=== PATIENT | male | born 1935 | race Caucasian/White ===

== ENCOUNTER 2017-04-10 08:09 | Outpatient (CLI) | payer MEDICARE, BC | END 2017-04-10 08:10 | disposition home or self-care (01) | DX: I10 Essential (primary) hypertension (principal); E78.5 Hyperlipidemia, unspecified ==

== ENCOUNTER 2017-04-14 09:15 | Outpatient (CLI) | payer MEDICARE, BC | END 2017-04-14 09:16 | disposition home or self-care (01) | LOC: LAB.WCP 09:15 | PROVIDERS: ATTEND Family Medicine | DX: B37.9 Candidiasis, unspecified (principal) | CPT/HCPCS: 87070; 87205 ==

== ENCOUNTER 2017-07-17 17:28 | Outpatient (CLI) | payer MEDICARE, BC ==
[2017-07-17 13:35] LABS: PSA FREE < 0.005 ng/mL (0.16-2.81); PSA TOTAL < 0.008 ng/mL (0.000-2.000)
[2017-07-17 13:41] LABS: ALBUMIN/GLOBULIN RATIO 1.5 (1.0-2.2); BILIRUBIN,TOTAL 0.7 mg/dL (0.2-1.0); BUN - BLOOD UREA NITROGEN 23 mg/dL (6-20); CALCIUM 8.7 mg/dL (8.5-10.3); CARBON DIOXIDE - CO2 29 mmol/L (21-32); CHLORIDE 108 mmol/L (101-111); CHOLESTEROL 102 mg/dL; GFR - MDRD 72 (>89); GLUCOSE 88 mg/dL (70-100); HDL CHOLESTEROL 52 mg/dL; LDL/HDL RATIO 0.7 (<3.6); SODIUM 140 mmol/L (135-145); TOTAL PROTEIN 6.7 g/dL (6.7-8.2); TRIGLYCERIDES 75 mg/dL; VLDL CHOLESTEROL 15 mg/dL
== END 2017-07-17 17:29 | disposition home or self-care (01) ==
LOC: LAB.WCP 17:28
PROVIDERS: ATTEND Family Medicine
DX: E78.5 Hyperlipidemia, unspecified (principal)
CPT/HCPCS: 36415; 80053; 80061; 84154; 84403

== ENCOUNTER 2018-01-28 10:44 | Emergency (ER) | payer MEDICARE, BC ==
[2018-01-28 11:23] LABS: BASOPHILS % (AUTO) 0.6 %; EOSINOPHILS # (AUTO) 0.4 10^3/uL (0.0-0.7); EOSINOPHILS % (AUTO) 6.6 %; HGB - HEMOGLOBIN 15.5 g/dL (14.0-18.0); LYMPHOCYTES % (AUTO) 18.4 %; MEAN CORPUSCULAR HEMOGLOBIN 30.7 pg (27.0-31.0); MEAN CORPUSCULAR VOLUME 90.5 fL (80.0-94.0); MONOCYTES # (AUTO) 0.5 10^3/uL (0.0-1.0); MONOCYTES % (AUTO) 8.7 %; NEUTROPHILS # (AUTO) 3.7 10^3/uL (1.5-6.6); NEUTROPHILS % (AUTO) 65.7 %; PLT - PLATELET COUNT 190 10^3/uL (130-450); RED BLOOD COUNT 5.04 10^6/uL (4.70-6.10); RED CELL DISTRIBUTION WIDTH 13.7 % (12.0-15.0); WHITE BLOOD COUNT 5.6 x10^3/uL (4.8-10.8)
--- NOTE | 2018-01-28 11:25 | ED Physician Documentation ---
History of Present Illness - Stated complaint Stated Complaint: BLOOD IN STOOL - Chief complaint Chief Complaint: Cardiac - History obtained from History obtained from: Patient - History of Present Illness Timing: How many days ago (2) Pain level max: 0 Pain level now: 0 Improved by: nothing Worsened by: nothing - Additonal information Additional information: states black stool in colostomy bag 2 days ago and again today. Had a colostomy placed he states for prostate cancer. States feels lightheaded. Lives alone. Not on blood thinners. No trauma. No abd pain. No vomiting. No fevers. Review of Systems Ten Systems: 10 systems reviewed and negative Constitutional: denies: Fever, Chills Nose: denies: Rhinorrhea / runny nose, Congestion Respiratory: denies: Cough GI: denies: Nausea, Vomiting Skin: denies: Rash Musculoskeletal: denies: Neck pain, Back pain Neurologic: denies: Headache PD PAST MEDICAL HISTORY - Past Medical History Cardiovascular: [place] Respiratory: None Endocrine/Autoimmune: None GI: Other : Other HEENT: Chronic vision loss, Glaucoma Psych: None Musculoskeletal: Osteoarthritis, Other Derm: None - Past Surgical History Past Surgical History: Yes General: Colonoscopy, Other Ortho: Knee replacement Cardiovascular: Coronary stent HEENT: Cataracts - Present Medications Home Medications: Ambulatory Orders Medication Instructions Recorded Confirmed Metoprolol Succinate [Toprol Xl] 12.5 mg PO ONCE 10/18/13 05/24/15 Aspirin 81 mg PO DAILY 02/05/14 05/24/15 - Allergies Allergies/Adverse Reactions: Allergies Allergy/AdvReac Type Severity Reaction Status Date / Time No Known Drug Allergies Allergy Verified 01/28/18 10:52 - Social History Does the pt smoke?: No Smoking Status: Never smoker Does the pt drink ETOH?: No Does the pt have substance abuse?: No - Immunizations Immunizations are current?: Yes - POLST Patient has POLST: No PD ED PE NORMAL - Vitals Vital signs reviewed: Yes - General General: Alert and oriented X 3, No acute distress - HEENT HEENT: Moist mucous membranes - Neck Neck: Supple, no meningeal sign - Cardiac Cardiac: RRR - Respiratory Respiratory: No respiratory distress - Abdomen Abdomen: Soft, Non tender, Non distended, Other (colostomy in LUQ, dark stool in colostomy bag) - Derm Derm: Warm and dry, No rash - Neuro Neuro: Alert and oriented X 3 - Psych Psych: Normal mood, Normal affect Results - Vitals Vitals: Vital Signs - 24 hr 01/28/18 01/28/18 10:50 12:23 Temperature 36.8 C Heart Rate 70 71 Respiratory 12 18 Rate Blood Pressure 152/82 H 122/82 H O2 Saturation 98 99 Oxygen O2 Source Room air - Labs Labs: Laboratory Tests 01/28/18 01/28/18 01/28/18 11:00 11:00 11:00 WBC 5.6 RBC 5.04 Hgb 15.5 Hct 45.5 MCV 90.5 MCH 30.7 MCHC 34.0 RDW 13.7 Plt Count 190 MPV 8.0 Neut # 3.7 Lymph # 1.0 L [place] # 0.5 Eos # 0.4 Baso # 0.0 Absolute Nucleated RBC 0.00 Nucleated RBC % 0.0 PT 11.5 INR 1.0 APTT 25.8 Sodium Potassium Chloride Carbon Dioxide Anion Gap BUN Creatinine Estimated GFR (MDRD) Glucose Calcium Total Bilirubin AST ALT Alkaline Phosphatase Total Protein Albumin Globulin Albumin/Globulin Ratio Lipase Blood Type O POSITIVE Antibody Screen NEGATIVE 01/28/18 11:00 WBC RBC Hgb Hct MCV MCH MCHC RDW Plt Count MPV Neut # Lymph # [place] # Eos # Baso # Absolute Nucleated RBC Nucleated RBC % PT INR APTT Sodium 138 Potassium 4.2 Chloride 105 Carbon Dioxide 23 Anion Gap 10.0 BUN 25 H Creatinine 0.9 Estimated GFR (MDRD) 81 L Glucose 106 H Calcium 9.1 Total Bilirubin 0.5 AST 24 ALT 19 Alkaline Phosphatase 76 Total Protein 7.3 Albumin 4.3 Globulin 3.0 Albumin/Globulin Ratio 1.4 Lipase 53 H Blood Type Antibody Screen PD MEDICAL DECISION MAKING - ED course Complexity details: reviewed old records, reviewed results, re-evaluated patient , considered differential, d/w patient ED course: Patient is an 82-year-old male who presents to the emergency department with dark stool in his colostomy bag. Hemoccult is negative on the stool in the colostomy bag. No evidence of blood. Normal hemoglobin. Feels better after IV fluids. We will have him follow-up with his doctor for further evaluation and care. No evidence of GI bleed. Patient counseled regarding signs and symptoms for which I believe and urgent re-evaluation would be necessary. Patient with good understanding of and agreement to plan and is comfortable going home at this time This document was made in part using voice recognition software. While efforts are made to proofread this document, sound alike and grammatical errors may occur. Departure - Departure Disposition: 01 Home, Self Care Clinical Impression: Dehydration, Dark stools Condition: Good Instructions: ED Dehydration Follow-Up: Kristin Brice MD [Primary Care Provider] - Within 1 week Comments: There is no blood in your stool today. Return if you worsen. Discharge Date/Time: 01/28/18 12:23
[2018-01-28 11:27] LABS: PT - PROTHROMBIN TIME 11.5 secs (9.9-12.6)
[2018-01-28] MEDS ORDERED: SODIUM CHLORIDE 0.9% 500 ML IV ONE (11:28)
[2018-01-28 11:36] LABS: ALBUMIN 4.3 g/dL (3.2-5.5); ALBUMIN/GLOBULIN RATIO 1.4 (1.0-2.2); BILIRUBIN,TOTAL 0.5 mg/dL (0.2-1.0); CALCIUM 9.1 mg/dL (8.5-10.3); CREATININE 0.9 mg/dL (0.6-1.2); TOTAL PROTEIN 7.3 g/dL (6.7-8.2)
[2018-01-28 12:24] VITALS: BP 122/82
== END 2018-01-28 12:23 | disposition home or self-care (01) ==
LOC: ED 10:44
DX: E86.0 Dehydration (principal); R19.5 Other fecal abnormalities; Z93.3 Colostomy status; Z79.82 Long term (current) use of aspirin
CPT/HCPCS: 36415; 80053; 83690; 85025; 85610; 85730; 86850; 86900; 86901; 99283; 99284

== ENCOUNTER 2018-09-07 07:28 | Outpatient (CLI) | payer MEDICARE, BC ==
[2018-09-07 12:24] LABS: BASOPHILS % (AUTO) 0.7 %; EOSINOPHILS # (AUTO) 0.4 10^3/uL (0.0-0.7); EOSINOPHILS % (AUTO) 6.6 %; HGB - HEMOGLOBIN 15.5 g/dL (14.0-18.0); LYMPHOCYTES % (AUTO) 19.4 %; MEAN CORPUSCULAR HGB CONC 33.9 g/dL (32.0-36.0); MEAN CORPUSCULAR VOLUME 91.5 fL (80.0-94.0); MEAN PLATELET VOLUME 8.5 fL (7.4-11.4); MONOCYTES # (AUTO) 0.4 10^3/uL (0.0-1.0); MONOCYTES % (AUTO) 7.6 %; NEUTROPHILS # (AUTO) 3.5 10^3/uL (1.5-6.6); NEUTROPHILS % (AUTO) 65.7 %; PLT - PLATELET COUNT 198 10^3/uL (130-450); RED BLOOD COUNT 5.01 10^6/uL (4.70-6.10); RED CELL DISTRIBUTION WIDTH 13.6 % (12.0-15.0); WHITE BLOOD COUNT 5.4 x10^3/uL (4.8-10.8)
[2018-09-07 12:40] LABS: ALBUMIN 4.3 g/dL (3.2-5.5); ALBUMIN/GLOBULIN RATIO 1.5 (1.0-2.2); ALKALINE PHOSPHATASE 78 IU/L (42-121); ALT ALANINE AMINOTRANSFERASE 19 IU/L (10-60); AST ASPARTATE AMINOTRANSFERASE 23 IU/L (10-42); BILIRUBIN,TOTAL 0.9 mg/dL (0.2-1.0); BUN - BLOOD UREA NITROGEN 25 mg/dL (6-20); CARBON DIOXIDE - CO2 29 mmol/L (21-32); CHLORIDE 104 mmol/L (101-111); CHOLESTEROL 125 mg/dL; CREATININE 1.1 mg/dL (0.6-1.2); GFR - MDRD 64 (>89); GLUCOSE 96 mg/dL (70-100); HDL CHOLESTEROL 64 mg/dL; LDL CHOLESTEROL,CALCULATED 52 mg/dL; LDL/HDL RATIO 0.8 (<3.6); SODIUM 140 mmol/L (135-145); TOTAL PROTEIN 7.1 g/dL (6.7-8.2); VLDL CHOLESTEROL 9 mg/dL
== END 2018-09-07 07:29 | disposition home or self-care (01) ==
LOC: LAB.WCP 07:28
PROVIDERS: ATTEND Family Medicine
DX: E78.5 Hyperlipidemia, unspecified (principal); I10 Essential (primary) hypertension
CPT/HCPCS: 36415; 80053; 80061; 83721; 85025

== ENCOUNTER 2018-11-12 09:13 | Outpatient (CLI) | payer MEDICARE, BC ==
[2018-11-12 13:54] LABS: BUN - BLOOD UREA NITROGEN 24 mg/dL (6-20); CALCIUM 8.6 mg/dL (8.5-10.3); CARBON DIOXIDE - CO2 27 mmol/L (21-32); CHLORIDE 103 mmol/L (101-111); CREATININE 0.9 mg/dL (0.6-1.2); GFR - MDRD 81 (>89); GLUCOSE 101 mg/dL (70-100); SODIUM 139 mmol/L (135-145)
== END 2018-11-12 23:59 | disposition home or self-care (01) ==
LOC: LAB.WCP 09:13
PROVIDERS: ATTEND Family Medicine
DX: F32.9 Major depressive disorder, single episode, unspecified (principal)
CPT/HCPCS: 36415; 80048; 84443

== ENCOUNTER 2019-10-05 09:53 | Outpatient (CLI) | payer MEDICARE, BC | END 2019-10-05 09:54 | disposition home or self-care (01) | LOC: DI 09:53 | PROVIDERS: ATTEND Physician Assistant | DX: R01.1 Cardiac murmur, unspecified (principal) | CPT/HCPCS: 93306 ==

== ENCOUNTER 2020-07-18 08:00 | Outpatient (CLI) | payer MEDICARE, BC ==
[2020-07-18 18:19] LABS: BASOPHILS % (AUTO) 0.6 %; EOSINOPHILS # (AUTO) 0.2 10^3/uL (0.0-0.7); EOSINOPHILS % (AUTO) 3.7 %; HGB - HEMOGLOBIN 14.6 g/dL (14.0-18.0); LYMPHOCYTES # (AUTO) 0.9 10^3/uL (1.5-3.5); LYMPHOCYTES % (AUTO) 18.3 %; MEAN CORPUSCULAR HEMOGLOBIN 31.1 pg (27.0-31.0); MEAN CORPUSCULAR HGB CONC 32.7 g/dL (32.0-36.0); MEAN CORPUSCULAR VOLUME 95.1 fL (80.0-94.0); MEAN PLATELET VOLUME 10.7 fL (7.4-11.4); MONOCYTES # (AUTO) 0.3 10^3/uL (0.0-1.0); MONOCYTES % (AUTO) 5.8 %; NEUTROPHILS # (AUTO) 3.7 10^3/uL (1.5-6.6); NEUTROPHILS % (AUTO) 71.4 %; PLT - PLATELET COUNT 209 10^3/uL (130-450); RED BLOOD COUNT 4.69 10^6/uL (4.70-6.10); RED CELL DISTRIBUTION WIDTH 13.3 % (12.0-15.0); WHITE BLOOD COUNT 5.1 x10^3/uL (4.8-10.8)
[2020-07-18 18:50] LABS: ALBUMIN/GLOBULIN RATIO 1.5 (1.0-2.2); BILIRUBIN,TOTAL 0.7 mg/dL (0.2-1.0); CALCIUM 9.1 mg/dL (8.5-10.3); TOTAL PROTEIN 6.7 g/dL (6.7-8.2)
== END 2020-07-18 23:59 | disposition home or self-care (01) ==
LOC: LAB.WCP 08:00
PROVIDERS: ATTEND Physician Assistant
DX: K92.1 Melena (principal)
CPT/HCPCS: 36415; 80053; 82728; 83540; 84466; 85025

== ENCOUNTER → 2020-08-30 | Outpatient (CLI) | payer MEDICARE, BC | LOC: LAB.WCP 09:16 | PROVIDERS: ATTEND Physician Assistant | DX: Z85.46 Personal history of malignant neoplasm of prostate (principal) | CPT/HCPCS: 36415; 84153 ==

== ENCOUNTER 2020-09-29 22:28 | Emergency (ER) | payer MEDICARE, BC ==
[2020-09-29] MEDS ORDERED: iohexoL-240 10 ML VIAL IVP ONE (23:32)
[2020-09-29 23:50] LABS: GLUCOSE, URINE (UA) NEGATIVE (NEGATIVE); KETONES,URINE (UA) TRACE mg/dL (NEGATIVE); NITRITE,URINE NEGATIVE (NEGATIVE); OCCULT BLOOD,URINE LARGE (NEGATIVE); PH,URINE 6.5 PH (5.0-7.5)
[2020-09-29 23:53] LABS: BASOPHILS % (AUTO) 0.8 %; EOSINOPHILS # (AUTO) 0.3 10^3/uL (0.0-0.7); EOSINOPHILS % (AUTO) 5.1 %; HGB - HEMOGLOBIN 14.4 g/dL (14.0-18.0); LYMPHOCYTES # (AUTO) 1.1 10^3/uL (1.5-3.5); LYMPHOCYTES % (AUTO) 22.2 %; MEAN CORPUSCULAR HEMOGLOBIN 30.4 pg (27.0-31.0); MEAN CORPUSCULAR HGB CONC 32.1 g/dL (32.0-36.0); MEAN CORPUSCULAR VOLUME 94.7 fL (80.0-94.0); MONOCYTES # (AUTO) 0.4 10^3/uL (0.0-1.0); MONOCYTES % (AUTO) 8.2 %; NEUTROPHILS # (AUTO) 3.1 10^3/uL (1.5-6.6); NEUTROPHILS % (AUTO) 63.3 %; PLT - PLATELET COUNT 189 10^3/uL (130-450); RED BLOOD COUNT 4.73 10^6/uL (4.70-6.10); WHITE BLOOD COUNT 4.9 x10^3/uL (4.8-10.8)
[2020-09-29 23:54] LABS: CLARITY,URINE CLOUDY (CLEAR)
[2020-09-29] MEDS ORDERED: IOVERSOL 320 50 ML VIAL ONE (23:57)
[2020-09-29] MEDS ORDERED: IOVERSOL 320 100 ML VIAL IVP ONE (23:57)
[2020-09-29 23:58] LABS: BILIRUBIN,URINE NEGATIVE (NEGATIVE); ICTOTEST,URINE NEGATIVE
[2020-09-30 00:02] LABS: LEUKOCYTE ESTERASE, URINE SMALL (NEGATIVE)
[2020-09-30 00:11] LABS: ALBUMIN 4.1 g/dL (3.2-5.5); ALBUMIN/GLOBULIN RATIO 1.5 (1.0-2.2); BILIRUBIN,TOTAL 0.8 mg/dL (0.2-1.0); CALCIUM 8.7 mg/dL (8.5-10.3); TOTAL PROTEIN 6.8 g/dL (6.7-8.2)
[2020-09-30 00:12] LABS: BACTERIA,URINE Many /HPF (None Seen); RBC,URINE TNTC /HPF (0-5); SQUAMOUS EPITHELIAL CELL,UR FEW Squamous (<= Few); YEAST,URINE PRESENT
--- NOTE | 2020-09-30 01:09 | ED Physician Documentation ---
PD HPI ABD PAIN - Stated complaint Stated Complaint: M - Chief complaint Chief Complaint: Abd Pain - History obtained from History obtained from: Patient - Additional information Additional information: -year-old man with history of high blood pressure, prostate cancer status post partial colectomy over a decade ago with ostomy in place, mild dementia. Presents with hematuria x1 day associated with mild aching constant nonradiating bilateral lower quadrant abdominal pain. Denies nausea, fever, back pain. Normal bowel movements. Review of Systems Ten Systems: 10 systems reviewed and negative Constitutional: denies: Fever, Chills GI: reports: Abdominal Pain. denies: Nausea, Vomiting, Diarrhea : reports: Hematuria. denies: Dysuria, Frequency, Testicular pain PD PAST MEDICAL HISTORY - Past Medical History Cardiovascular: [place] Respiratory: None Endocrine/Autoimmune: None GI: Other : Other HEENT: Chronic vision loss, Glaucoma Psych: None Musculoskeletal: Osteoarthritis, Other Derm: None - Past Surgical History Past Surgical History: Yes General: Colonoscopy, Other Ortho: Knee replacement Cardiovascular: Coronary stent HEENT: Cataracts - Present Medications Home Medications: Ambulatory Orders Medication Instructions Recorded Confirmed Metoprolol Succinate [Toprol Xl] 12.5 mg PO ONCE 10/18/13 05/24/15 Aspirin 81 mg PO DAILY 02/05/14 05/24/15 Cefpodoxime Proxetil [Vantin] 200 mg PO Q12H 7 Days #14 tablet 09/30/20 - Allergies Allergies/Adverse Reactions: Allergies Allergy/AdvReac Type Severity Reaction Status Date / Time No Known Drug Allergies Allergy Verified 09/29/20 22:36 - Social History Does the pt smoke?: No Smoking Status: Never smoker Does the pt drink ETOH?: No Does the pt have substance abuse?: No - Immunizations Immunizations are current?: Yes - POLST Patient has POLST: No PD ED PE NORMAL - Vitals Vital signs reviewed: Yes - General General: Alert and oriented X 3 - HEENT HEENT: Atraumatic - Neck Neck: Supple, no meningeal sign - Cardiac Cardiac: RRR - Respiratory Respiratory: No respiratory distress, Clear bilaterally - Abdomen Abdomen: Normal bowel sounds, Other (mildly tender to palpation in bilateral lower quadrants) - Male 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) - Rectal Rectal: Deferred - Back Back: No CVA TTP - Derm Derm: Normal color, Warm and dry - Extremities Extremities: No deformity - Neuro Neuro: Alert and oriented X 3 - Psych Psych: Normal mood, Normal affect Results - Vitals Vitals: Vital Signs - 24 hr 09/29/20 09/30/20 09/30/20 22:36 01:57 06:25 Temperature 36.6 C Heart Rate 78 78 77 Respiratory 16 16 16 Rate Blood Pressure 179/85 H 192/97 H 168/94 H O2 Saturation 97 97 95 Oxygen O2 Source Room air - Labs Labs: Laboratory Tests 09/29/20 09/29/20 09/29/20 23:20 23:40 23:40 WBC 4.9 RBC 4.73 Hgb 14.4 Hct 44.8 MCV 94.7 H MCH 30.4 MCHC 32.1 RDW 13.0 Plt Count 189 MPV 10.0 Neut # (Auto) 3.1 Lymph # (Auto) 1.1 L [place] # (Auto) 0.4 Eos # (Auto) 0.3 Baso # (Auto) 0.0 Absolute Nucleated RBC 0.00 Nucleated RBC % 0.0 Sodium 139 Potassium 3.9 Chloride 105 Carbon Dioxide 26 Anion Gap 8.0 BUN 22 H Creatinine 1.0 Estimated GFR (MDRD) 71 L Glucose 109 H Calcium 8.7 Total Bilirubin 0.8 AST 20 ALT 19 Alkaline Phosphatase 80 Total Protein 6.8 Albumin 4.1 Globulin 2.7 Albumin/Globulin Ratio 1.5 Lipase 47 Urine Color BROWN Urine Clarity CLOUDY Urine pH 6.5 Ur Specific [place] 1.025 Urine Protein Urine Glucose (UA) NEGATIVE Urine Ketones TRACE Urine Occult Blood LARGE H Urine Nitrite NEGATIVE Urine Bilirubin NEGATIVE Urine Urobilinogen Ur Leukocyte Esterase SMALL H Urine RBC TNTC H Urine WBC 4-5 Ur Squamous Epith Cells FEW Squamous Urine Bacteria Many H Urine Yeast PRESENT Ur Microscopic Review INDICATED Urine Culture Comments INDICATED PD MEDICAL DECISION MAKING - ED course Complexity details: reviewed results, re-evaluated patient, d/w patient ED course: 85yM Prostate cancer in remission presents with hematuria for 1 day associated with left lower quadrant pain. As of urinary tract infection on urinalysis as well as a possible diverticulum on CAT scan with cystic mass uncovered as well. Discussed with patient who is aware of this finding now. Discussed with hospitalist who recommends patient follow-up outpatient pcp/urology rather than being admitted. Patient agreeable to plan at this time strict return precautions given. Departure - Departure Disposition: 01 Home, Self Care Clinical Impression: UTI (urinary tract infection), Abdominal pain, Hematuria, Abdominal mass, V omiting Condition: Stable Instructions: ED UTI Cystitis Male Prescriptions: Cefpodoxime Proxetil [Vantin] 200 mg PO Q12H 7 Days #14 tablet Comments: You have been seen in the emergency department for blood in your urine. You were found to have a urinary tract infection with a abdominal mass and possible tunnel between the urethra and the intestines. You need to follow-up with your urologist as well as your primary doctor and PA holiday. Take these antibiotics as prescribed. Return for any worsening of symptoms. Discharge Date/Time: 09/30/20 06:25
[2020-09-30] MEDS ORDERED: IOVERSOL 320 100 ML VIAL IVP ONE (01:56)
[2020-09-30] MEDS ORDERED: IOVERSOL 320 50 ML VIAL PO ONE (01:56)
[2020-09-30] MEDS ORDERED: LACTATED RINGERS 1,000 ML IV ONE (02:18)
[2020-09-30] MEDS ORDERED: MORPHINE 2 MG/ML CARPUJECT IVP STA (03:06)
[2020-09-30] MEDS ORDERED: cefTRIAXone 1 GM VIAL IVP STA (03:22)
[2020-09-30] MEDS ORDERED: FLUCONAZOLE 200 MG/100 ML 50 ML IV ONE (04:00)
--- NOTE | 2020-09-30 05:23 | CONSULTATION NOTE ---
Referring Provider Name of Referring Provider:: Blanca Vigil Consult Date: 09/30/20 Chief Complaint - Chief Complaint Chief Complaint: UTI History of Present Illness - Admitted From Admitted From:: [facility] 80 - History Obtained From Records Reviewed: Yes History obtained from: Patient - History of Present Illness HPI Comment/Other: Patient is an 85-year-old male with medical history significant for prostate cancer status post radical prostatectomy done at [facility] 10 years ago and ended up with a colostomy as a result, coronary artery disease status post 2 stents and hyperlipidemia who presented to the ED today with complaint of hematuria. Upon arrival to the ED he experienced sudden lower abdominal pain which he rated as 5/10. He was given a dose of morphine and by the time of this evaluation he denied any pain. Work-up in the ED included UA which showed large occult blood, 4-5 WBCs and many bacteria. Urine yeast was also present.Also had a CT scanning of the abdomen pelvis which showed a mass suspected to be diverticulum versus cystic structure. I was asked to evaluate the patient and give recommendations regarding admission versus outpatient treatment. At bedside patient was resting comfortably watching something on his phone. He denied chest pain, dyspnea, abdominal pain, nausea, vomiting, fever or chills. He is completely independent of activities of daily living. He lives alone. His closest relatives down by [place]. His in the past couple years. History - Past Medical History Cardiovascular: reports: High cholesterol, Coronary artery disease, [place] Respiratory: reports: None Endocrine/Autoimmune: reports: None GI: reports: Other : reports: Other HEENT: reports: Chronic vision loss, Glaucoma Psych: reports: None Musculoskeletal: reports: Osteoarthritis, Other Derm: reports: None MRSA Hx?: No - Past Surgical History General: reports: Colonoscopy, Other Ortho: reports: Knee replacement Cardiovascular: reports: Coronary stent HEENT: reports: Cataracts - Family & Social History Family History Comment/Other: The patient's father from an MVA. The mother at 93 from natural causes Living arrangement: At home Living Situation: Alone (Is a ) Social History Notes: The patient lives alone and is independent of activities of daily living. His in the past couple of years. His closest family member lives down in [place]. He denies tobacco use. He rarely drinks and denies illicit drug use. - POLST Patient has POLST: No POLST Status: Full Code Meds/Allgy - Home Medications Home Medications: Ambulatory Orders Medication Instructions Recorded Confirmed Metoprolol Succinate [Toprol Xl] 12.5 mg PO ONCE 10/18/13 05/24/15 Aspirin 81 mg PO DAILY 02/05/14 05/24/15 Cefpodoxime Proxetil [Vantin] 200 mg PO Q12H 7 Days #14 tablet 09/30/20 - Allergies Allergies/Adverse Reactions: Allergies Allergy/AdvReac Type Severity Reaction Status Date / Time No Known Drug Allergies Allergy Verified 09/29/20 22:36 Review of Systems - Constitutional Constitutional: denies: Fever, Chills - Eyes Eyes: denies: Pain - Ears, Nose & Throat Ears, Nose & Throat: denies: Ear pain - Cardiovascular Cariovascular: denies: Irregular heart rate, Chest pain, Edema, Lightheadedness - Respiratory Respiratory: denies: Cough, Wheezing, Snoring, SOB at rest - Gastrointestinal Gastrointestinal: reports: Abdominal pain. denies: Abdominal distention, Constipation, Diarrhea, Nausea, Vomiting, Coffee grounds emesis, Reflux/heartburn - Genitourinary Genitourinary: reports: Hematuria. denies: Dysuria, Frequency, Urgency - Musculoskeletal Musculoskeletal: denies: Muscle pain, Back pain - Integumentary Integumentary: denies: Rash, Pruritis - Neurological Neurological: denies: General weakness, Focal weakness, Headache, Dizziness - Psychiatric Psychiatric: denies: Depression, Anxiety - Endocrine Endocrine: denies: Polyuria, Polydypsia - Hematologic/Lymphatic Hematologic/Lymphatic: denies: Anemia, Bruising, Petechiae Exam - Vital Signs Vital Signs: Vital Signs x48h Temp Pulse Resp BP Pulse Ox 09/30/20 01:57 78 16 192/97 H 97 09/29/20 22:36 36.6 C 78 16 179/85 H 97 - Physical Exam General Appearance: positive: No acute distress, Alert Eyes Bilateral: positive: PERRL, EOMI ENT: positive: No signs of dehydration Neck: positive: No JVD, Trachea midline Respiratory: positive: Chest non-tender, No respiratory distress, Breath sounds nml. negative: Wheezes, Rales, Rhonchi Cardiovascular: positive: Regular rate & rhythm, No murmur, No gallop Abdomen: positive: Non-tender, No distention Rectal: positive: Other (Colostomy bag in place. Continues to which is soft) Back: positive: Nml inspection Skin: positive: Color nml, No rash, Warm, Dry Extremities: positive: Non-tender, Full ROM, Nml appearance, No pedal edema Neurologic/Psychiatric: positive: Oriented x3, Mood/affect nml Conclusion/Plan - Diagnosis Diagnosis: UTI - Plan Plan: Recommendations were to treat the patient with oral antibiotic for 1 week in the outpatient setting. Also to order Pyridium 200 mg 3 times daily for 3 days. Patient can also take Tylenol as needed for pain. The patient was informed of the new CT Finding of urinary diverticulum or cystic structure for which he needed to follow-up with urology. He expressed understanding and was agreeable to doing so. - Lab Results Fish Bones: 09/29/20 23:40 09/29/20 23:40
[2020-09-30 06:26] VITALS: BP 168/94
--- NOTE | 2020-09-30 12:04 | CT Report ---
PROCEDURE: Abdomen/Pelvis W INDICATIONS: BL LQ pain CONTRAST: IV CONTRAST: Optiray 320 ml: 100 PO CONTRAST: Optiray 320 ml50 TECHNIQUE: After the administration of weight appropriate dose of intravenous contrast, 5 mm thick sections acqu ired from the diaphragms to the symphysis. 5 mm thick coronal and sagittal reformats were acquired. For radiation dose reduction, the following was used: automated exposure control, adjustment of mA and/or kV according to patient size. COMPARISON: 09/25/2013. FINDINGS: Image quality: Excellent. ABDOMEN: Lung bases: Minimal bibasilar atelectasis. Heart size is normal. Solid organs: Liver and spleen are normal in size and enhancement. Gallbladder contains layering hy perdense material likely representing sludge versus innumerable layering small gallstones versus vica rious excretion of contrast. Biliary system is non dilated. Pancreas enhances normally. No adrenal nodules. Kidneys demonstrate normal size and enhancement, without hydronephrosis. Redemonstration o f bilateral renal cysts. Peritoneum and bowel: Status post distal colectomy with left upper quadrant colostomy. Bowel loops d emonstrate normal wall thickness and caliber. No free fluid or air. Nodes and vessels: No retroperitoneal or mesenteric adenopathy by size criteria. Aorta and inferior vena cava are normal in size. Scattered atherosclerotic calcifications of the abdominal aorta. Miscellaneous: No ventral hernias. PELVIS: Genitourinary: Bladder wall thickness is normal. Status post prostatectomy. Multiple surgical clips in the pelvis. Radiation seeds are noted in the prostate bed. There is a new circumscribed cystic co llection noted immediately inferior to the urinary bladder and extending inferiorly into the perineum . No adjacent inflammatory stranding. This measures approximately 4.6 x 4.2 cm in transverse dimensio n. No internal gas. There is also new penile prosthesis with tubing and reservoir noted. The reservoi r abuts the right lateral margin of the urinary bladder. Miscellaneous: No inguinal hernias or adenopathy. Bones: No suspicious bony lesions. No acute vertebral body compression fractures. Multilevel spond ylitic changes. IMPRESSION: 1. Status post prostatectomy. New large cystic mass inferior to the urinary bladder with extension in to the perineum which may represent a postoperative fluid collection given interval visualization of a penile prosthesis. Possible urethral diverticulum is in the differential. No evidence for acute inf lammatory changes. 2. Layering density in the gallbladder likely representing sludge versus innumerable layering gallsto meg. Vicarious excretion of contrast is also a consideration. No CT evidence for acute cholecystitis. 3. Status post distal colectomy with left upper quadrant colostomy. Other chronic findings as above. No significant discrepancy with initial interpretation by overnight radiologist. Reviewed by: Larry Majano MD on 09/30/2020 11:03 AM [facility] Approved by: Larry Majano MD on 09/30/2020 11:03 AM [facility] Station ID: [id number]
== END 2020-09-30 06:25 | disposition home or self-care (01) ==
LOC: ED 22:28
DX: N39.0 Urinary tract infection, site not specified (principal); R31.9 Hematuria, unspecified; R19.00 Intra-abdominal and pelvic swelling, mass and lump, unspecified site; R11.10 Vomiting, unspecified; I25.10 Atherosclerotic heart disease of native coronary artery without angina pectoris; Z95.5 Presence of coronary angioplasty implant and graft; E78.5 Hyperlipidemia, unspecified; Z85.46 Personal history of malignant neoplasm of prostate; Z90.79 Acquired absence of other genital organ(s); Z90.49 Acquired absence of other specified parts of digestive tract; Z93.3 Colostomy status; Z79.82 Long term (current) use of aspirin
CPT/HCPCS: 36415; 74177; 80053; 81001; 83690; 85025; 87040; 87086; 96365; 96375; 99284; J7120; Q9967; 81003; Q9966

== ENCOUNTER → 2020-10-06 | Outpatient (CLI) | payer MEDICARE, BC ==
[2020-10-06 16:32] LABS: BILIRUBIN,URINE NEGATIVE (NEGATIVE); GLUCOSE, URINE (UA) NEGATIVE (NEGATIVE); KETONES,URINE (UA) NEGATIVE (NEGATIVE); LEUKOCYTE ESTERASE, URINE NEGATIVE (NEGATIVE); NITRITE,URINE NEGATIVE (NEGATIVE); OCCULT BLOOD,URINE TRACE-INTA (NEGATIVE); PROTEIN,URINE NEGATIVE (NEGATIVE); UROBILINOGEN,URINE 0.2 (NORMAL) E.U./dL (NORMAL)
[2020-10-06 16:33] LABS: CLARITY,URINE CLEAR (CLEAR)
== END ==
LOC: LAB.R 08:00
PROVIDERS: ATTEND Physician Assistant
DX: R31.9 Hematuria, unspecified (principal)
CPT/HCPCS: 81001; 81003; 87086

== ENCOUNTER 2021-01-06 17:00 | Outpatient (CLI) | payer MEDICARE, BC | END 2021-01-06 17:01 | disposition critical access hospital (66) | LOC: EMS 17:00 | DX: K94.03 Colostomy malfunction (principal) | CPT/HCPCS: A0425; A0429 ==

== ENCOUNTER 2021-01-06 17:13 | Emergency (ER) | payer MEDICARE, BC ==
--- NOTE | 2021-01-06 18:32 | ED Physician Documentation ---
History of Present Illness - Stated complaint Stated Complaint: GI - Chief complaint Chief Complaint: Abd Pain - Additonal information Additional information: 85-year-old male with PMH most significant for prostate cancer status post radical prostatectomy (10 years ago) with a resultant colostomy, CAD s/p 2 stents and hyperlipidemia presents to the emergency department for evaluation of what he feels is abnormal rectal output. He states that this morning he had slightly brown mucoid output from his rectum. He also had a hard ball the size of a small marshmallow associated with this. This concerned him as he has a left-sided colostomy and denies that he ever has rectal output previous to this. He denies any abdominal pain, no nausea or vomiting. Denies chest pain or shortness of breath. He appears remarkably well. He is concerned because he reports that he had an EGD completed at [facility] a few months ago however they were unable to go as far as they wanted to with the scoping because he is intestines were" already full". Patient states for it for the last 3 months his ostomy output has oscillated between watery and mashed potato-like which he feels is new for him. Review of Systems Constitutional: denies: Fever, Chills Eyes: reports: Reviewed and negative Ears: reports: Reviewed and negative Nose: reports: Reviewed and negative Throat: reports: Reviewed and negative Cardiac: reports: Reviewed and negative Respiratory: reports: Reviewed and negative GI: reports: Other (Brown mucoid rectal output. Left-sided ostomy). denies: Abdominal Pain, Nausea, Vomiting : denies: Dysuria, Frequency, Hesitancy PD PAST MEDICAL HISTORY - Past Medical History Past Medical History: Yes Cardiovascular: ID Respiratory: None Endocrine/Autoimmune: None GI: Other : Other HEENT: Chronic vision loss, Glaucoma Psych: None Musculoskeletal: Osteoarthritis, Other Derm: None - Past Surgical History Past Surgical History: Yes General: Colonoscopy, Other Ortho: Knee replacement Cardiovascular: Coronary stent HEENT: Cataracts - Present Medications Home Medications: Ambulatory Orders Medication Instructions Recorded Confirmed Metoprolol Succinate [Toprol Xl] 12.5 mg PO ONCE 10/18/13 05/24/15 Aspirin 81 mg PO DAILY 02/05/14 05/24/15 Cefpodoxime Proxetil [Vantin] 200 mg PO Q12H 7 Days #14 tablet 09/30/20 - Allergies Allergies/Adverse Reactions: Allergies Allergy/AdvReac Type Severity Reaction Status Date / Time No Known Drug Allergies Allergy Verified 01/06/21 17:29 - Social History Does the pt smoke?: No Smoking Status: Never smoker Does the pt drink ETOH?: No Does the pt have substance abuse?: No - Immunizations Immunizations are current?: Yes - POLST Patient has POLST: No POLST Status: Full Code PD ED PE EXPANDED - General General: Alert, No acute distress, Well developed/nourished - Neck Neck: Supple w/out meningeal sx. No: Adenopathy - Cardiac Cardiac: Regular Rate, Regular Rhythm, Radial strong equal, Pedal strong equal, Cap refill < 2 sec - Respiratory Respiratory: Clear to ausultation lane. No: Distress, Labored - Abdomen Abdomen: Normal Bowel sounds, Surgical scars (vertical midline well approximated), Other (Left-sided ostomy with brown soft/somewhat liquid output. Nonbloody. Stoma itself appears pink intact and healthy). No: Tender to palpation - Rectal Rectal: Normal Tone (Digital rectal exam reveals scant amount of clear mucoid drainage on gloved finger.Exam elicits some tenderness but not more than expected) - Back Back: Normal exam, Normal ROM. No: Soft tissue tenderness - Neuro Neuro: Alert and Oriented X 3, CNII-XII intact - GCS Eye Opening: Spontaneous Motor: Obeys Commands Verbal: Oriented Total: 15 Results - Vitals Vitals: Vital Signs - 24 hr 01/06/21 01/06/21 17:15 18:17 Temperature 36.6 C Heart Rate 77 58 L Respiratory 18 18 Rate Blood Pressure 157/84 H 143/81 H O2 Saturation 97 98 Oxygen O2 Source Room air - Labs Labs: Laboratory Tests 01/06/21 01/06/21 18:30 18:30 WBC 4.3 L RBC 4.51 L Hgb 13.7 L Hct 42.6 MCV 94.5 H MCH 30.4 MCHC 32.2 RDW 12.9 Plt Count 195 MPV 9.5 Neut # (Auto) 2.9 Lymph # (Auto) 0.8 L [place] # (Auto) 0.3 Eos # (Auto) 0.2 Baso # (Auto) 0.1 Absolute Nucleated RBC 0.00 Nucleated RBC % 0.0 Sodium 141 Potassium 4.3 Chloride 102 Carbon Dioxide 24 Anion Gap 15.0 H BUN 28 H Creatinine 1.1 Estimated GFR (MDRD) 64 L Glucose 104 H Calcium 9.2 Total Bilirubin 0.9 AST 18 ALT 16 Alkaline Phosphatase 74 Total Protein 6.5 L Albumin 3.9 Globulin 2.6 Albumin/Globulin Ratio 1.5 Lipase 59 H - Rads (name of study) CT abd Radiology: Final report received (Postsurgical changes are again seen from partial colectomy with left upper quadrant colostomy. Hyperdense material in the excluded distal and sigmoid colon and rectum. Bowel wall thickening in the sigmoid colon similar to CT scan from 10/10/2020. Status post prostatectomy. ), See rad report PD MEDICAL DECISION MAKING - ED course Complexity details: reviewed results, re-evaluated patient, considered differential, d/w patient ED course: This is a very well-appearing 85-year-old male that presents to the emergency department as he had concerns about a brown mucoid output from his rectum. He does have a diverting left upper quadrant colostomy. His vital signs and labs in [place]. I did do a digital rectal exam and there was only a small amount of thin nearly clear mucoid discharge in the rectum. I discussed with patient that its common to have some mucoid discharge from the rectum in patients who h ave long-term colostomy as the rectum itself remains viable and living tissue. However the patient was excessively concerned that this may be a sign of infection. We did proceed with a CT of the abdomen that showed no perirectal concerns. There are the findings of cystic lesions within the inferior bladder and perineum that are not significantly changed from CT scan 09/30/2020. Patient's GI physician is Dr. Jorge in [place]. He reports a good relationship and feels that he can follow-up adequately. Emergent return precautions discussed Departure - Departure Clinical Impression: Rectal discharge, H/O colectomy Condition: Stable Record reviewed to determine appropriate education?: Yes Follow-Up: NAOMI JORGE MD [Physician No Access] - Comments: Jamie salas were seen for rectal discharge in the emergency department. He felt this was abnormal as you do not typically have any. My exam of your rectum did not reveal any abnormal discharge. We did do a CT of the abdomen and pelvis and did not find any concerns within the rectum. The CT of the abdomen was essentially unchanged from the one completed in September 2020. Your labs today were essentially normal and unchanged from recent visits. Please discuss this ED visit with your surgeon Dr. Jorge. She should have access to our imaging here at [facility]. If at any point you find you have suddenly severe abdominal pain, have bloody colostomy output or bloody rectal drainage, if you develop any fevers or have uncontrolled vomiting please return immediately to the ER
[2021-01-06 18:36] LABS: BASOPHILS # (AUTO) 0.1 10^3/uL (0.0-0.1); BASOPHILS % (AUTO) 1.2 %; EOSINOPHILS # (AUTO) 0.2 10^3/uL (0.0-0.7); EOSINOPHILS % (AUTO) 3.9 %; HGB - HEMOGLOBIN 13.7 g/dL (14.0-18.0); LYMPHOCYTES # (AUTO) 0.8 10^3/uL (1.5-3.5); MEAN CORPUSCULAR HEMOGLOBIN 30.4 pg (27.0-31.0); MEAN CORPUSCULAR HGB CONC 32.2 g/dL (32.0-36.0); MEAN CORPUSCULAR VOLUME 94.5 fL (80.0-94.0); MEAN PLATELET VOLUME 9.5 fL (7.4-11.4); MONOCYTES # (AUTO) 0.3 10^3/uL (0.0-1.0); MONOCYTES % (AUTO) 7.6 %; NEUTROPHILS # (AUTO) 2.9 10^3/uL (1.5-6.6); NEUTROPHILS % (AUTO) 67.4 %; PLT - PLATELET COUNT 195 10^3/uL (130-450); RED BLOOD COUNT 4.51 10^6/uL (4.70-6.10); RED CELL DISTRIBUTION WIDTH 12.9 % (12.0-15.0); WHITE BLOOD COUNT 4.3 x10^3/uL (4.8-10.8)
[2021-01-06] MEDS ORDERED: IOVERSOL 320 100 ML VIAL IVP ONE ×2 (18:51→19:23)
[2021-01-06 18:52] LABS: ALBUMIN 3.9 g/dL (3.2-5.5); ALBUMIN/GLOBULIN RATIO 1.5 (1.0-2.2); BILIRUBIN,TOTAL 0.9 mg/dL (0.2-1.0); CALCIUM 9.2 mg/dL (8.5-10.3); CREATININE 1.1 mg/dL (0.6-1.2); TOTAL PROTEIN 6.5 g/dL (6.7-8.2)
--- NOTE | 2021-01-06 19:43 | CT Report ---
PROCEDURE: Abdomen/Pelvis W INDICATIONS: mucoid rectal output in the setting of colostomy CONTRAST: IV CONTRAST: Optiray 320 ml: 100 PO CONTRAST: *NO PO CONTRAST TECHNIQUE: After the administration of intravenous contrast, 5 mm thick sections acquired from the diaphragms to the symphysis. 5 mm thick coronal and sagittal reformats were acquired. For radiation dose reducti on, the following was used: automated exposure control, adjustment of mA and/or kV according to tiago ent size. COMPARISON: CT abdomen/pelvis 09/30/2020 FINDINGS: Image quality: Excellent. ABDOMEN: Lung bases: Lung bases are clear. Heart size is normal. Solid organs: Liver and spleen are normal in size and enhancement. Gallbladder again contains layer ing hyperdense material that may represent hyperdense sludge or numerous tiny gallstones. Biliary sy stem is non dilated. Pancreas enhances normally. No adrenal nodules. Kidneys demonstrate normal si ze and enhancement, without hydronephrosis. Bilateral renal cysts are redemonstrated. Peritoneum and bowel: Postsurgical changes again seen from partial colectomy with left upper quadrant ostomy. There is no small bowel obstruction. There is no ascites or pneumoperitoneum. Surgical clips are noted in the left upper quadrant. The excluded portion of the descending colon, sigmoid colon, a nd rectum contain hyperdense material. There is mild bowel wall thickening involving the sigmoid colo n, which is decompressed. Nodes and vessels: No retroperitoneal or mesenteric adenopathy by size criteria. Aorta and inferior vena cava are normal in size. Moderate atherosclerotic calcifications are seen in the aorta. Miscellaneous: No ventral hernias. PELVIS: Genitourinary: Bladder wall thickness is normal. Postsurgical changes are seen from prostatectomy. A fluid collection is again seen extending from inferiorly from the bladder into the perineum that do es not appear significantly changed when compared to the CT from 09/30/2020. A penile implant is noted with fluid reservoir in the right pelvis. Miscellaneous: No inguinal hernias or adenopathy. Bones: No suspicious bony lesions. No vertebral body compression fractures. Multilevel degenerativ e changes are seen in the spine. IMPRESSION: 1. Postsurgical changes are again seen from partial colectomy with left upper quadrant colostomy. Th ere is hyperdense material in the excluded distal and sigmoid colon and rectum. Bowel wall thickening in the sigmoid colon is similar to the CT from 09/30/2020, and may represent chronic stenosis and/or a superimposed nonspecific colitis. 2. Status post prostatectomy. Cystic lesion again seen inferior to the bladder extending into the pe rineum, which does not appear significantly changed when compared to the CT from 09/30/2020 and again may represent a postoperative fluid collection or ureteral diverticulum among other etiologies. 3. Stable layering hyperdense material in the gallbladder may represent hyperdense sludge or numerou s tiny gallstones. No signs of acute cholecystitis. Reviewed by: Kj Johnson MD on 01/06/2021 7:42 PM PST Approved by: Kj Johnson MD on 01/06/2021 7:42 PM PST Station ID: [id number]
[2021-01-06 20:14] VITALS: BP 179/90
== END 2021-01-06 20:38 | disposition home or self-care (01) ==
LOC: EDUNIT# → ED 17:13
DX: Z71.1 Person with feared health complaint in whom no diagnosis is made (principal); Z93.3 Colostomy status; Z90.49 Acquired absence of other specified parts of digestive tract; Z90.79 Acquired absence of other genital organ(s); Z08 Encounter for follow-up examination after completed treatment for malignant neoplasm; Z85.46 Personal history of malignant neoplasm of prostate; I25.10 Atherosclerotic heart disease of native coronary artery without angina pectoris; Z95.5 Presence of coronary angioplasty implant and graft; E78.5 Hyperlipidemia, unspecified; Z79.82 Long term (current) use of aspirin
CPT/HCPCS: 36415; 74177; 80053; 83690; 85025; 99284; Q9967

== ENCOUNTER 2021-08-05 10:05 | Emergency (ER) | payer MEDICARE, BC ==
[2021-08-05 12:32] LABS: BASOPHILS # (AUTO) 0.1 10^3/uL (0.0-0.1); BASOPHILS % (AUTO) 1.2 %; EOSINOPHILS # (AUTO) 0.2 10^3/uL (0.0-0.7); EOSINOPHILS % (AUTO) 5.2 %; HCT - HEMATOCRIT 45.9 % (42.0-52.0); HGB - HEMOGLOBIN 14.6 g/dL (14.0-18.0); LYMPHOCYTES # (AUTO) 0.9 10^3/uL (1.5-3.5); LYMPHOCYTES % (AUTO) 20.7 %; MEAN CORPUSCULAR HEMOGLOBIN 30.2 pg (27.0-31.0); MEAN CORPUSCULAR HGB CONC 31.8 g/dL (32.0-36.0); MEAN CORPUSCULAR VOLUME 94.8 fL (80.0-94.0); MEAN PLATELET VOLUME 9.8 fL (7.4-11.4); MONOCYTES # (AUTO) 0.3 10^3/uL (0.0-1.0); MONOCYTES % (AUTO) 7.1 %; NEUTROPHILS # (AUTO) 2.8 10^3/uL (1.5-6.6); NEUTROPHILS % (AUTO) 65.6 %; PLT - PLATELET COUNT 188 10^3/uL (130-450); RED BLOOD COUNT 4.84 10^6/uL (4.70-6.10); RED CELL DISTRIBUTION WIDTH 13.2 % (12.0-15.0); WHITE BLOOD COUNT 4.3 x10^3/uL (4.8-10.8)
[2021-08-05 12:45] LABS: ALBUMIN 4.3 g/dL (3.2-5.5); ALBUMIN/GLOBULIN RATIO 1.7 (1.0-2.2); CALCIUM 8.9 mg/dL (8.5-10.3); POTASSIUM 4.5 mmol/L (3.5-5.0); TOTAL PROTEIN 6.8 g/dL (6.7-8.2)
--- NOTE | 2021-08-05 12:57 | ED Physician Documentation ---
History of Present Illness - Stated complaint Stated Complaint: BLOOD IN STOOL - Chief complaint Chief Complaint: General - History obtained from History obtained from: Patient - History of Present Illness Timing: Today Pain level max: 0 Pain level now: 0 - Additonal information Additional information: Patient is an 85-year-old male who presents to the emergency department stating that he noticed a small amount of bright red blood in his colostomy bag over the past few days. No abdominal pain. No fevers. Nothing makes it better or worse. Has had similar symptoms previously. He states that he received pills 1 time that stopped the bleeding. Review of Systems Constitutional: denies: Fever, Chills GI: denies: Vomiting, Hematemesis : denies: Dysuria Skin: denies: Rash Musculoskeletal: denies: Neck pain, Back pain Neurologic: denies: Headache PD PAST MEDICAL HISTORY - Past Medical History Past Medical History: Yes Cardiovascular: Coronary artery disease, [place] Respiratory: None Neuro: Dementia Endocrine/Autoimmune: None GI: Other : Benign prostate hypertrophy, Other HEENT: Chronic vision loss, Glaucoma Psych: None Musculoskeletal: Osteoarthritis, Other Derm: None Other Past Medical History: colon cancer with resection - Past Surgical History Past Surgical History: Yes General: Colonoscopy, Other Ortho: Knee replacement Cardiovascular: Coronary stent HEENT: Cataracts - Present Medications Home Medications: Ambulatory Orders Medication Instructions Recorded Confirmed Metoprolol Succinate [Toprol Xl] 12.5 mg PO DAILY 10/18/13 08/05/21 Aspirin 81 mg PO DAILY 02/05/14 08/05/21 Ascorbic Acid [Vitamin C] 1,000 mg PO DAILY 08/05/21 08/05/21 Atorvastatin Calcium 40 mg PO HS 08/05/21 08/05/21 Cholecalciferol [Vitamin D3] 5,000 unit PO DAILY 08/05/21 08/05/21 Galantamine HBr [Razadyne ER] 16 mg PO DAILY 08/05/21 08/05/21 - Allergies Allergies/Adverse Reactions: Allergies Allergy/AdvReac Type Severity Reaction Status Date / Time No Known Drug Allergies Allergy Verified 08/05/21 10:22 - Social History Does the pt smoke?: No Smoking Status: Former smoker Does the pt drink ETOH?: No Does the pt have substance abuse?: No - Immunizations Immunizations are current?: Yes - POLST Patient has POLST: No POLST Status: Full Code PD ED PE NORMAL - Vitals Vital signs reviewed: Yes - General General: Alert and oriented X 3, No acute distress - HEENT HEENT: Moist mucous membranes - Neck Neck: Supple, no meningeal sign - Cardiac Cardiac: RRR - Respiratory Respiratory: No respiratory distress, Clear bilaterally - Abdomen Abdomen: Normal bowel sounds, Soft, Non tender, Other (Light brown stool in the colostomy bag, 2 small flecks of bright red blood visible.) - Back Back: No CVA TTP - Derm Derm: Warm and dry - Extremities Extremities: No edema - Neuro Neuro: Alert and oriented X 3 - Psych Psych: Normal mood, Normal affect Results - Vitals Vitals: Vital Signs - 24 hr 08/05/21 08/05/21 08/05/21 10:20 12:36 13:45 Temperature 36.1 C L 36.3 C L Heart Rate 63 63 57 L Respiratory 16 16 Rate Blood Pressure 161/68 H 133/67 H 133/66 H O2 Saturation 98 99 97 Oxygen O2 Source Room air - Labs Labs: Laboratory Tests 08/05/21 08/05/21 08/05/21 12:15 12:15 12:56 WBC 4.3 L RBC 4.84 Hgb 14.6 Hct 45.9 MCV 94.8 H MCH 30.2 MCHC 31.8 L RDW 13.2 Plt Count 188 MPV 9.8 Neut # (Auto) 2.8 Lymph # (Auto) 0.9 L [place] # (Auto) 0.3 Eos # (Auto) 0.2 Baso # (Auto) 0.1 Absolute Nucleated RBC 0.00 Nucleated RBC % 0.0 Sodium 139 Potassium 4.5 Chloride 102 Carbon Dioxide 28 Anion Gap 9.0 BUN 24 H Creatinine 1.0 Estimated GFR (MDRD) 71 L Glucose 112 H Calcium 8.9 Total Bilirubin 1.0 AST 19 ALT 20 Alkaline Phosphatase 83 Total Protein 6.8 Albumin 4.3 Globulin 2.5 Albumin/Globulin Ratio 1.7 Lipase 115 H Urine Color YELLOW Urine Clarity CLEAR Urine pH 6.0 Ur Specific [place] 1.025 Urine Protein NEGATIVE Urine Glucose (UA) NEGATIVE Urine Ketones NEGATIVE Urine Occult Blood NEGATIVE Urine Nitrite NEGATIVE Urine Bilirubin NEGATIVE Urine Urobilinogen 0.2 (NORMAL) Ur Leukocyte Esterase NEGATIVE Ur Microscopic Review NOT INDICATED Urine Culture Comments NOT INDICATED PD MEDICAL DECISION MAKING - ED course Complexity details: reviewed results, re-evaluated patient, considered differential, d/w patient ED course: Minimal bleeding in his ostomy bag. No indication for imaging. No fevers. No abdominal pain. No leukocytosis. We will have him follow-up closely with his doctor for further care. He will return if he worsens. Patient counseled regarding signs and symptoms for which I believe and urgent re-evaluation would be necessary. Patient with good understanding of and agreement to plan and is comfortable going home at this time This document was made in part using voice recognition software. While efforts are made to proofread this document, sound alike and grammatical errors may occur. Departure - Departure Disposition: Home, Self Care Clinical Impression: Hematochezia Condition: Good Instructions: ED Hematochezia Stable Follow-Up: your,doctor in 1 week [Other] Comments: The cause of your symptoms is unclear today, your laboratory testing is normal. If you start to develop abdominal pain, fevers or worsening symptoms, you should return for further evaluation. Normally this is a self-limited issue and will resolve on its own. There is no evidence of infection at this time. Discharge Date/Time: 08/05/21 13:58
[2021-08-05 13:03] LABS: BILIRUBIN,URINE NEGATIVE (NEGATIVE); GLUCOSE, URINE (UA) NEGATIVE (NEGATIVE); KETONES,URINE (UA) NEGATIVE (NEGATIVE); LEUKOCYTE ESTERASE, URINE NEGATIVE (NEGATIVE); NITRITE,URINE NEGATIVE (NEGATIVE); OCCULT BLOOD,URINE NEGATIVE (NEGATIVE); PROTEIN,URINE NEGATIVE (NEGATIVE); UROBILINOGEN,URINE 0.2 (NORMAL) E.U./dL (NORMAL)
[2021-08-05 13:21] LABS: CLARITY,URINE CLEAR (CLEAR)
[2021-08-05 13:46] VITALS: BP 133/66
== END 2021-08-05 13:58 | disposition home or self-care (01) ==
LOC: ED 10:05
DX: K92.1 Melena (principal); Z93.3 Colostomy status; Z95.5 Presence of coronary angioplasty implant and graft; Z79.82 Long term (current) use of aspirin; Z87.891 Personal history of nicotine dependence
CPT/HCPCS: 36415; 80053; 81001; 81003; 83690; 85025; 87086; 99283; 99284

== ENCOUNTER 2022-02-06 02:41 | Outpatient (CLI) | payer MEDICARE, BC | END 2022-02-06 02:42 | disposition critical access hospital (66) | LOC: EMS 02:41 | DX: R53.1 Weakness (principal) | CPT/HCPCS: A0425; A0429 ==

== ENCOUNTER 2022-02-06 02:55 | Emergency (ER) | payer MEDICARE, BC ==
--- NOTE | 2022-02-06 03:56 | ED Physician Documentation ---
History of Present Illness - Stated complaint Stated Complaint: PARALYSIS - Chief complaint Chief Complaint: General - History obtained from History obtained from: Patient - Additonal information Additional information: Patient presents to the emergency department for episode where he briefly felt paralyzed. Patient was sleeping andWas waking up. He was not able to move his arms or his legs for a few seconds and then was able to. He felt panicked and called 911. Now that he is here in the emergency department, he denies any complaints or concerns. He now believes that he was in the midst of a dream.Denies any recent illness, fever, chest pain, difficulty breathing, vomiting, unilateral weakness. Review of Systems Constitutional: denies: Fever Eyes: denies: Loss of vision Nose: denies: Congestion Throat: denies: Dental pain / toothache Cardiac: denies: Chest pain / pressure Respiratory: denies: Dyspnea, Cough GI: denies: Abdominal Pain : denies: Dysuria Skin: denies: Rash Musculoskeletal: denies: Neck pain Neurologic: denies: Focal weakness, Syncope PD PAST MEDICAL HISTORY - Past Medical History Past Medical History: Yes Cardiovascular: Hypertension, High cholesterol, Coronary artery disease, [place] Respiratory: None Neuro: Dementia Endocrine/Autoimmune: None GI: Other : Benign prostate hypertrophy, Other HEENT: Chronic vision loss, Glaucoma Psych: None Musculoskeletal: Osteoarthritis, Other Derm: None Other Past Medical History: HAS COLOSTOMY... - Past Surgical History Past Surgical History: Yes General: Colonoscopy, Other Ortho: Knee replacement Cardiovascular: Coronary stent HEENT: Cataracts - Present Medications Home Medications: Ambulatory Orders Medication Instructions Recorded Confirmed Metoprolol Succinate [Toprol Xl] 12.5 mg PO DAILY 10/18/13 02/06/22 Aspirin 81 mg PO DAILY 02/05/14 02/06/22 Cholecalciferol [Vitamin D3] 5,000 unit PO DAILY 08/05/21 02/06/22 - Allergies Allergies/Adverse Reactions: Allergies Allergy/AdvReac Type Severity Reaction Status Date / Time No Known Drug Allergies Allergy Verified 02/06/22 03:05 - Social History Does the pt smoke?: No Smoking Status: Never smoker Does the pt drink ETOH?: No Does the pt have substance abuse?: No - Immunizations Immunizations are current?: Yes - POLST Patient has POLST: No POLST Status: Full Code PD ED PE NORMAL - General General: Alert and oriented X 3, No acute distress, Well developed/nourished - HEENT HEENT: Atraumatic, PERRL, EOMI, Moist mucous membranes, Pharynx benign - Neck Neck: Supple, no meningeal sign, No bony TTP - Cardiac Cardiac: RRR, No murmur, No gallop, Strong equal pulses - Respiratory Respiratory: No respiratory distress, Clear bilaterally - Abdomen Abdomen: Normal bowel sounds, Soft, Non tender, Non distended - Derm Derm: Normal color, Warm and dry - Extremities Extremities: No deformity, No edema - Neuro Neuro: Alert and oriented X 3, 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, No motor deficit, No sensory deficit, Normal speech - Psych Psych: Normal mood, Normal affect Results - Vitals Vitals: Vital Signs - 24 hr 02/06/22 02/06/22 02/06/22 03:02 03:07 03:40 Temperature 35.9 C L Heart Rate 80 59 L 69 Respiratory 17 17 18 Rate Blood Pressure 173/79 H 134/99 H O2 Saturation 99 100 99 02/06/22 05:03 Temperature Heart Rate 56 L Respiratory 14 Rate Blood Pressure 146/68 H O2 Saturation 96 Oxygen O2 Source Room air - Labs Labs: Laboratory Tests 02/06/22 02/06/22 03:46 03:55 WBC 4.0 L RBC 4.39 L Hgb 13.5 L Hct 41.1 L MCV 93.6 MCH 30.8 MCHC 32.8 RDW 13.1 Plt Count 181 MPV 9.4 Neut # (Auto) 2.2 Lymph # (Auto) 1.1 L [place] # (Auto) 0.3 Eos # (Auto) 0.3 Baso # (Auto) 0.0 Absolute Nucleated RBC 0.00 Nucleated RBC % 0.0 Sodium 139 Potassium 4.1 Chloride 104 Carbon Dioxide 28 Anion Gap 7.0 BUN 28 H Creatinine 1.0 Estimated GFR (MDRD) 71 L Glucose 106 H Calcium 8.7 Total Bilirubin 0.6 AST 16 ALT 14 Alkaline Phosphatase 64 Total Protein 6.1 L Albumin 3.8 Globulin 2.3 Albumin/Globulin Ratio 1.7 PD MEDICAL DECISION MAKING - ED course ED course: Patient presenting for evaluation of a brief period where he was not able to move his arms or legs, while he was awakening from sleep. On arrival to the emergency department his neurologic exam appears normal. I do not think this episode to suggest stroke.He does not appear altered from his baseline. Labs were obtained and are consistent with his previous labs. Patient is ambulatory in the emergency department. He has no complaints currently. Feel he is appropriate for outpatient follow-up. He was given strict return precautions. Departure - Departure Disposition: 01 Home, Self Care Clinical Impression: Generalized weakness Condition: Stable Instructions: ED Weakness [facility] Comments: You were evaluated today for a brief period of weakness. The exact cause is unclear. It could have been related to you still being partially asleep and waking up.Your labs do not show any new abnormalities.Weakness, trouble walking, headache, chest pain, pain anywhere.You should follow-up with your doctor as needed. Please return to the emergency department if you develop any abnormal symptoms such as
[2022-02-06 03:59] LABS: EOSINOPHILS # (AUTO) 0.3 10^3/uL (0.0-0.7); EOSINOPHILS % (AUTO) 7.5 %; HCT - HEMATOCRIT 41.1 % (42.0-52.0); HGB - HEMOGLOBIN 13.5 g/dL (14.0-18.0); LYMPHOCYTES # (AUTO) 1.1 10^3/uL (1.5-3.5); LYMPHOCYTES % (AUTO) 28.1 %; MEAN CORPUSCULAR HEMOGLOBIN 30.8 pg (27.0-31.0); MEAN CORPUSCULAR HGB CONC 32.8 g/dL (32.0-36.0); MEAN CORPUSCULAR VOLUME 93.6 fL (80.0-94.0); MEAN PLATELET VOLUME 9.4 fL (7.4-11.4); MONOCYTES # (AUTO) 0.3 10^3/uL (0.0-1.0); MONOCYTES % (AUTO) 8.5 %; NEUTROPHILS # (AUTO) 2.2 10^3/uL (1.5-6.6); NEUTROPHILS % (AUTO) 54.6 %; PLT - PLATELET COUNT 181 10^3/uL (130-450); RED BLOOD COUNT 4.39 10^6/uL (4.70-6.10); RED CELL DISTRIBUTION WIDTH 13.1 % (12.0-15.0)
[2022-02-06 04:11] LABS: ALBUMIN 3.8 g/dL (3.2-5.5); ALBUMIN/GLOBULIN RATIO 1.7 (1.0-2.2); BILIRUBIN,TOTAL 0.6 mg/dL (0.2-1.0); CALCIUM 8.7 mg/dL (8.5-10.3); POTASSIUM 4.1 mmol/L (3.5-5.0); TOTAL PROTEIN 6.1 g/dL (6.7-8.2)
[2022-02-06 05:05] VITALS: BP 146/68
== END 2022-02-06 06:00 | disposition home or self-care (01) ==
LOC: EDUNIT# → ED 02:55
DX: M62.81 Muscle weakness (generalized) (principal); I10 Essential (primary) hypertension
CPT/HCPCS: 36415; 80053; 85025; 99282; 99284

== ENCOUNTER 2022-07-30 08:00 | Outpatient (CLI) | payer MEDICARE, BC | END 2022-07-30 23:59 | disposition home or self-care (01) | LOC: LAB.N 08:00 | PROVIDERS: ATTEND Registered Nurse | DX: L03.119 Cellulitis of unspecified part of limb (principal) | CPT/HCPCS: 87070; 87181; 87205 ==

== ENCOUNTER 2022-08-06 11:28 | Outpatient (CLI) | payer MEDICARE, BC ==
[2022-08-06 18:04] LABS: BASOPHILS # (AUTO) 0.1 10^3/uL (0.0-0.1); BASOPHILS % (AUTO) 1.1 %; EOSINOPHILS # (AUTO) 0.3 10^3/uL (0.0-0.7); EOSINOPHILS % (AUTO) 4.8 %; HCT - HEMATOCRIT 44.6 % (42.0-52.0); HGB - HEMOGLOBIN 14.6 g/dL (14.0-18.0); LYMPHOCYTES % (AUTO) 18.1 %; MEAN CORPUSCULAR HEMOGLOBIN 29.9 pg (27.0-31.0); MEAN CORPUSCULAR HGB CONC 32.7 g/dL (32.0-36.0); MEAN CORPUSCULAR VOLUME 91.2 fL (80.0-94.0); MEAN PLATELET VOLUME 10.2 fL (7.4-11.4); MONOCYTES # (AUTO) 0.4 10^3/uL (0.0-1.0); MONOCYTES % (AUTO) 7.4 %; NEUTROPHILS # (AUTO) 3.9 10^3/uL (1.5-6.6); NEUTROPHILS % (AUTO) 68.2 %; PLT - PLATELET COUNT 212 10^3/uL (130-450); RED BLOOD COUNT 4.89 10^6/uL (4.70-6.10); RED CELL DISTRIBUTION WIDTH 13.2 % (12.0-15.0); WHITE BLOOD COUNT 5.7 x10^3/uL (4.8-10.8)
[2022-08-06 18:32] LABS: ALBUMIN 4.3 g/dL (3.2-5.5); ALBUMIN/GLOBULIN RATIO 1.5 (1.0-2.2); ALKALINE PHOSPHATASE 69 IU/L (42-121); ALT ALANINE AMINOTRANSFERASE 13 IU/L (10-60); AST ASPARTATE AMINOTRANSFERASE 19 IU/L (10-42); BILIRUBIN,TOTAL 0.7 mg/dL (0.2-1.0); BUN - BLOOD UREA NITROGEN 24 mg/dL (6-20); CALCIUM 9.3 mg/dL (8.5-10.3); CARBON DIOXIDE - CO2 27 mmol/L (21-32); CHLORIDE 104 mmol/L (101-111); CHOL/HDL RATIO 2.9 (<5.0); CHOLESTEROL 182 mg/dL; CREATININE 1.3 mg/dL (0.6-1.2); GFR - MDRD 52 (>89); GLUCOSE 103 mg/dL (70-100); HDL CHOLESTEROL 63 mg/dL; LDL CHOLESTEROL,CALCULATED 109 mg/dL; LDL/HDL RATIO 1.7 (<3.6); POTASSIUM 4.7 mmol/L (3.5-5.0); SODIUM 138 mmol/L (135-145); TOTAL PROTEIN 7.2 g/dL (6.7-8.2); TRIGLYCERIDES 51 mg/dL; VLDL CHOLESTEROL 10 mg/dL
== END 2022-08-06 11:29 | disposition home or self-care (01) ==
LOC: LAB.N 11:28
PROVIDERS: ATTEND Physician Assistant Medical
DX: I10 Essential (primary) hypertension (principal); E78.5 Hyperlipidemia, unspecified
CPT/HCPCS: 36415; 80053; 80061; 83721; 84153; 85025

== ENCOUNTER 2022-12-04 18:06 | Emergency (ER) | payer MEDICARE, BC ==
[2022-12-04 18:58] LABS: BILIRUBIN,URINE NEGATIVE (NEGATIVE); GLUCOSE, URINE (UA) NEGATIVE (NEGATIVE); KETONES,URINE (UA) 15 mg/dL (NEGATIVE); LEUKOCYTE ESTERASE, URINE NEGATIVE (NEGATIVE); NITRITE,URINE NEGATIVE (NEGATIVE); OCCULT BLOOD,URINE LARGE (NEGATIVE); PROTEIN,URINE 100 mg/dL (NEGATIVE); UROBILINOGEN,URINE 0.2 (NORMAL) E.U./dL (NORMAL)
[2022-12-04 18:59] LABS: BACTERIA,URINE Few /HPF (None Seen); CLARITY,URINE TURBID (CLEAR); RBC,URINE TNTC /HPF (0-5); SQUAMOUS EPITHELIAL CELL,UR NONE SEEN (<= Few); WBC,URINE 0-3 /HPF (0-3)
--- NOTE | 2022-12-04 19:05 | ED Physician Documentation ---
PD HPI ABD PAIN - Stated complaint Stated Complaint: BLOOD IN URINE - Chief complaint Chief Complaint: UTI - History obtained from History obtained from: Patient - Additional information Additional information: 87-year-old gentleman with history of colon cancer in remission with colostomy developed mild hematuria the other day until the day has gross hematuria without clots. He has some minimal left lower quadrant pain. No history of kidney stone in the past. No fevers, no vomiting. Review of Systems Constitutional: denies: Fever, Chills Cardiac: reports: Reviewed and negative Respiratory: reports: Reviewed and negative PD PAST MEDICAL HISTORY - Past Medical History Cardiovascular: Hypertension, High cholesterol, Coronary artery disease, [place] Respiratory: None Neuro: Dementia Endocrine/Autoimmune: None GI: Other : Benign prostate hypertrophy, Other HEENT: Chronic vision loss, Glaucoma Psych: None Musculoskeletal: Osteoarthritis, Other Derm: None - Past Surgical History Past Surgical History: Yes General: Colonoscopy, Other Ortho: Knee replacement Cardiovascular: Coronary stent HEENT: Cataracts - Present Medications Home Medications: Ambulatory Orders Medication Instructions Recorded Confirmed Aspirin 81 mg PO DAILY 02/05/14 12/04/22 - Allergies Allergies/Adverse Reactions: Allergies Allergy/AdvReac Type Severity Reaction Status Date / Time No Known Drug Allergies Allergy Verified 12/04/22 18:11 - Social History Does the pt smoke?: No Smoking Status: Never smoker Does the pt drink ETOH?: No Does the pt have substance abuse?: No - Immunizations Immunizations are current?: Yes - POLST Patient has POLST: No POLST Status: Full Code PD ED PE NORMAL - Vitals Vital signs reviewed: Yes - General General: Other (Mild dementia but a decent historian.) - Abdomen Abdomen: Normal bowel sounds, Soft, Non tender - Back Back: No CVA TTP - Extremities Extremities: No edema, No calf tenderness / cord Results - Vitals Vitals: Vital Signs - 24 hr 12/04/22 12/04/22 18:09 19:14 Temperature 36.8 C Heart Rate 81 78 Respiratory 16 18 Rate Blood Pressure 170/91 H 165/86 H O2 Saturation 98 97 Oxygen O2 Source Room air - Labs Labs: Laboratory Tests 12/04/22 18:39 Urine Color RED/BLOODY Urine Clarity TURBID Urine pH 6.0 Ur Specific Debary 1.025 Urine Protein 100 H Urine Glucose (UA) NEGATIVE Urine Ketones 15 H Urine Occult Blood LARGE H Urine Nitrite NEGATIVE Urine Bilirubin NEGATIVE Urine Urobilinogen 0.2 (NORMAL) Ur Leukocyte Esterase NEGATIVE Urine RBC TNTC H Urine WBC 0-3 Ur Squamous Epith Cells NONE SEEN Urine Bacteria Few Ur Microscopic Review INDICATED Urine Culture Comments NOT INDICATED - Rads (name of study) CT KUB with left-sided hydronephrosis. Radiology: Final report received, EMP read indepedently PD Medical Decision Making - ED course ED course: 87-year-old gentleman with acute gross hematuria with minimal left lower quadrant pain. CT done showing left-sided hydronephrosis, but no clear stone. Discussed remaining differential with patient and caregiver the need for urologic follow-up and they voiced understanding. Departure - Departure Disposition: 01 Home, Self Care Clinical Impression: Hematuria Qualifiers: Hematuria type: gross Qualified Code(s): R31.0 - Gross hematuria Hydronephrosis Qualifiers: Hydronephrosis type: unspecified Qualified Code(s): N13.30 - Unspecified hydronephrosis Condition: Good Record reviewed to determine appropriate education?: Yes Instructions: ED Hematuria Comments: As discussed, you were seen today for blood in the urine. We did a CAT scan which showed left-sided hydronephrosis (a widening of the ureter on that side) but no clear kidney stone. You will need to follow-up with urologist for further evaluation and treatment. The closest is in [employer]: [facility] [address] [place] [address], [place] [address] [place] [id number] P: [phone] Call tomorrow for next available appointment. Return for new or worsening symptoms. Drink plenty of urine. Take the CAT scan on CD with you to set appointment.
--- NOTE | 2022-12-04 19:49 | CT Report ---
PROCEDURE: ABDOMEN/PELVIS WO INDICATIONS: LLq pain and hematuria TECHNIQUE: Noncontrast 5 mm thick sections acquired from the diaphragms to the symphysis. 5 mm coronal and sagi ttal reformats were then performed. For radiation dose reduction, the following was used: automated exposure control, adjustment of mA and/or kV according to patient size. COMPARISON: CT dated 01/06/2021 FINDINGS: Image quality: Excellent. ABDOMEN: Lung bases: Lung bases are clear. Heart size is normal. Solid organs: Liver and spleen are normal in size. Gallbladder demonstrates multiple calculi within its lumen Pancreas is normal in contours. No adrenal nodules. Kidneys are normal in size. Mild le ft hydronephrosis. Peritoneum and bowel: Unenhanced bowel loops demonstrate normal wall thickness an d caliber. No free fluid or air. I density containing tubular focus within the left pelvis extendin g into the anorectal junction, as before. Nodes and vessels: No retroperitoneal or mesenteric adenopathy by size criteria. Aorta and inferior vena cava are normal in caliber. Miscellaneous: No ventral hernias. PELVIS: Genitourinary: Bladder wall thickness is normal. Miscellaneous: No inguinal hernias or adenopathy. Penile implant reservoir within the right anterio r pelvis. Bones: No suspicious bony lesions. No vertebral body compression fractures. IMPRESSION: 1. Mild left hydronephrosis. 2. Cholelithiasis. 3. Appendix not seen. No evidence of appendicitis. Reviewed by: Trina Armendariz MD on 12/04/2022 7:48 PM PST Approved by: Trina Armendariz MD on 12/04/2022 7:48 PM PST Station ID: [id number]
[2022-12-04 20:39] VITALS: BP 172/93
== END 2022-12-04 20:39 | disposition home or self-care (01) ==
LOC: ED 18:06
DX: R31.0 Gross hematuria (principal); N13.30 Unspecified hydronephrosis
CPT/HCPCS: 81001; 81003; 87086; 99283; 99284

== ENCOUNTER 2022-12-26 13:04 | Emergency (ER) | payer MEDICARE, BC ==
[2022-12-26 13:25] VITALS: BP 152/135
--- NOTE | 2022-12-26 13:40 | ED Physician Documentation ---
History of Present Illness - Stated complaint Stated Complaint: BROKEN COLOSTOMY BAG - Chief complaint Chief Complaint: General - History obtained from History obtained from: Patient, Friend - Additonal information Additional information: This is a very nice 87-year-old gentleman who presents due to needing assistance with his colostomy. He has had a colostomy bag for upwards of 20 years and generally cares for on his own but has been having some memory issues lately and has either misplaced or forgot to obtain supplies and today A friend visited him and noticed that he was without a colostomy bag and they did not know where else to go so presented to the ER. He is not quite sure where he normally gets his colostomy supplies but thinks he does so through his PCP, he does not have home health. He does live alone and has a friend that visits in a daughter locally. He is interested in home health to assist with his colostomy management but denies any other concerns at home, no falls, he has not had any focal weakness, no fever or chills, no chest pain or difficulty breathing, no abdominal pain, no nausea vomiting or diarrhea. PD PAST MEDICAL HISTORY - Past Medical History Past Medical History: Yes Cardiovascular: Hypertension, High cholesterol, Coronary artery disease, [place] Respiratory: None Neuro: Dementia Endocrine/Autoimmune: None GI: Other : Benign prostate hypertrophy, Other HEENT: Chronic vision loss, Glaucoma Psych: None Musculoskeletal: Osteoarthritis, Other Derm: None - Past Surgical History Past Surgical History: Yes General: Colonoscopy, Other Ortho: Knee replacement Cardiovascular: Coronary stent HEENT: Cataracts - Present Medications Home Medications: Ambulatory Orders Medication Instructions Recorded Confirmed Aspirin 81 mg PO DAILY 02/05/14 12/04/22 - Allergies Allergies/Adverse Reactions: Allergies Allergy/AdvReac Type Severity Reaction Status Date / Time No Known Drug Allergies Allergy Verified 12/04/22 18:11 - Social History Does the pt smoke?: No Smoking Status: Never smoker Does the pt drink ETOH?: No Does the pt have substance abuse?: No - Immunizations Immunizations are current?: Yes - POLST Patient has POLST: No POLST Status: Full Code PD ED PE NORMAL - Vitals Vital signs reviewed: Yes - General General: Alert and oriented X 3, No acute distress, Well developed/nourished - Abdomen Abdomen: Normal bowel sounds, Soft, Non tender, Non distended, Other (Ostomy present, pink and appears well cared for, no surrounding signs of infection) Results - Vitals Vitals: Vital Signs - 24 hr 12/26/22 13:22 Temperature 36.4 C L Heart Rate 77 Respiratory 16 Rate Blood Pressure 152/135 H O2 Saturation 100 Oxygen O2 Source Room air PD Medical Decision Making - ED course Complexity details: d/w patient ED course: 87-year-old male who presents for colostomy management. He is without colostomy supplies however the ostomy itself looks very healthy and there is no surrounding infection. I discussed with patient and his friend that I would place a home health consult we can get him supplies at home otherwise he will need to follow-up with his primary doctor to get new supplies but we have changed the bag today. He had no other concerns today. Blood pressure was noted to be mildly elevated ever patient is asymptomatic, he denies history of hypertension. He will follow-up with his PCP for this as well. Patient is increasingly forgetful according to friend however is managing okay at home for now, I encouraged him to talk with PCP and family about this and consider starting to make arrangements if memory issues start to worsen. Departure - Departure Disposition: 01 Home, Self Care Clinical Impression: Colostomy care Condition: Good Instructions: Colostomy Common Questions Comments: We replaced your colostomy bag here. Please follow-up as needed with your primary doctor for additional supplies or issues. Return to the ER at any point time if you have other concerns or are in need of colostomy care.
== END 2022-12-26 13:58 | disposition home or self-care (01) ==
LOC: ED 13:04
DX: Z76.0 Encounter for issue of repeat prescription (principal); R03.0 Elevated blood-pressure reading, without diagnosis of hypertension; R41.3 Other amnesia
CPT/HCPCS: 99281; 99282

== ENCOUNTER 2023-03-20 11:32 | Emergency (ER) | payer MEDICARE, BC ==
--- NOTE | 2023-03-20 12:06 | ED Physician Documentation ---
History of Present Illness - Stated complaint Stated Complaint: RECTAL BLEEDING - Chief complaint Chief Complaint: Abd Pain - Additonal information Additional information: 87-year-old male presents to the emergency department with his caregiver for evaluation of rectal bleeding. Per the caregiver the patient is developing dementia and his memory is not good. The history is obtained from both parties. Patient states he noticed bright red blood in his underwear yesterday. He denies that it could have come from a urinary source. He described it as spotting though his caregiver described it as a much larger volume of blood. This gentleman does have a complicated abdominal history. He did have colorectal cancer in 1992 and does have a colostomy in place. He also has a history of a TURBT Prostate/Rectal urethral fistula. In addition to this he does have an artificial urinary sphincter with a bladder. Caregiver and patient report that he is likely lost about 50 pounds over the last 6 months. She delivers meals to him 3 days a week but he often forgets to eat. Patient denies cough, chest pain, shortness of breath fevers or night sweats. Review of Systems Constitutional: reports: Fatigue, Other (50 pound weight loss). denies: Fever Cardiac: reports: Reviewed and negative Respiratory: reports: Reviewed and negative GI: reports: Other (Colostomy) : reports: Other (Rectal bleeding) Musculoskeletal: reports: Reviewed and negative Neurologic: reports: Reviewed and negative PD PAST MEDICAL HISTORY - Past Medical History Cardiovascular: Hypertension, High cholesterol, Coronary artery disease, [place] Respiratory: None Neuro: Dementia Endocrine/Autoimmune: None GI: Other : Benign prostate hypertrophy, Other HEENT: Chronic vision loss, Glaucoma Psych: None Musculoskeletal: Osteoarthritis, Other Derm: None - Past Surgical History Past Surgical History: Yes General: Colonoscopy, Other Ortho: Knee replacement Cardiovascular: Coronary stent HEENT: Cataracts - Present Medications Home Medications: Ambulatory Orders Medication Instructions Recorded Confirmed No Known Home Medications 03/20/23 03/20/23 - Allergies Allergies/Adverse Reactions: Allergies Allergy/AdvReac Type Severity Reaction Status Date / Time No Known Drug Allergies Allergy Verified 03/20/23 11:38 - Social History Does the pt smoke?: No Smoking Status: Never smoker Does the pt drink ETOH?: No Does the pt have substance abuse?: No - Immunizations Immunizations are current?: Yes - POLST Patient has POLST: No POLST Status: Full Code PD ED PE EXPANDED - General General: Alert, Other (Thin appearance) - Cardiac Cardiac: Regular Rate, Radial strong equal, Pedal strong equal, Cap refill < 2 sec - Respiratory Respiratory: Clear to ausultation lane. No: Distress, Labored - Abdomen Abdomen: Normal Bowel sounds, Other (Mid abdominal colostomy. Soft brown stool noted in bag. Ostomy itself is pink without any surrounding inflammation erythema or drainage.). No: Tender to palpation - Rectal Rectal: Other (Very tight rectal sphincter. Unable to complete digital rectal exam. Moderate amount of BRB perrectum noted) - Derm Derm: Normal color, Warm and dry. No: Rash - Extremities Extremities: Normal. No: Deformity, Tenderness - Neuro Neuro: Alert and Oriented X 3, CNII-XII intact - GCS Eye Opening: Spontaneous Motor: Obeys Commands Verbal: Oriented Total: 15 Results - Vitals Vitals: Vital Signs - 24 hr 03/20/23 03/20/23 03/20/23 11:38 12:23 14:00 Temperature 36.4 C L Heart Rate 71 72 80 Respiratory 18 17 18 Rate Blood Pressure 154/69 H 144/81 H 132/76 H O2 Saturation 99 100 99 Oxygen O2 Source Room air - Labs Labs: Laboratory Tests 03/20/23 03/20/23 03/20/23 12:11 12:11 12:11 WBC 5.3 RBC 4.56 L Hgb 13.3 L Hct 41.2 L MCV 90.4 MCH 29.2 MCHC 32.3 RDW 13.3 Plt Count 208 MPV 10.6 Neut # (Auto) 3.8 Lymph # (Auto) 0.9 L Divide # (Auto) 0.3 Eos # (Auto) 0.1 Baso # (Auto) 0.0 Absolute Nucleated RBC 0.00 Nucleated RBC % 0.0 PT 12.9 H INR 1.2 Sodium 139 Potassium 3.8 Chloride 107 Carbon Dioxide 28 Anion Gap 4.0 L BUN 19 Creatinine 1.1 Estimated GFR (MDRD) 63 L Glucose 114 H Calcium 8.7 Total Bilirubin 0.6 AST 16 ALT < 10 L Alkaline Phosphatase 68 Total Protein 6.4 L Albumin 3.7 Globulin 2.7 Albumin/Globulin Ratio 1.4 Lipase 62 H TSH Free T4 03/20/23 12:11 WBC RBC Hgb Hct MCV MCH MCHC RDW Plt Count MPV Neut # (Auto) Lymph # (Auto) Divide # (Auto) Eos # (Auto) Baso # (Auto) Absolute Nucleated RBC Nucleated RBC % PT INR Sodium Potassium Chloride Carbon Dioxide Anion Gap BUN Creatinine Estimated GFR (MDRD) Glucose Calcium Total Bilirubin AST ALT Alkaline Phosphatase Total Protein Albumin Globulin Albumin/Globulin Ratio Lipase TSH 0.90 Free T4 1.02 - Rads (name of study) CT abd Relevant Findings:: Final report received (Enhancing soft tissue mass within the left renal collecting system with resultant dilation of the superior mid aspect of the left renal collecting system. Neoplasm cannot be excluded. No interval change in the post distal left hemicolectomy. Cholelithiasis. No findings of acute cholecystitis) PD Medical Decision Making - ED course Complexity details: reviewed results, re-evaluated patient, considered differential, d/w patient, d/w family, d/w data processing consultant ([place]) ED course: 87-year-old male who has a past medical history that includes hypertension, diabetes and dementia as well as a complicated abdominal surgical history that includes colorectal cancer, a diverting colostomy as well as a TURP with a rectal urethral fistula and an artificial bladder/urinary sphincter presents to the emergency department for 1 day of rectal bleeding. Unfortunately due to the patient's dementia it seems that he has not appropriately followed up as indicated with past ED visits. Today on exam he is alert though thin appearing. His abdominal exam reveals a healthy appearing mid abdominal colostomy with brown output. No significant abdominal tenderness was elicited. I did attempt a rectal exam though he had a rather constricted sphincter. There was some small to moderate amount of bright red blood seen from the rectum. I did obtain a CBC and electrolytes. Per my interpretation no acute findings are seen today. Subsequently a CT of the abdomen was completed. Unfortunately it does show an enhancing soft tissue mass within the left renal collecting system concerning for new neoplasm. I did discuss this case with the patient's primary care provider LEE Mckeon. An appointment has been scheduled to help arrange follow-up for March 25 at 2:40 PM. I also discussed the case with his caregiver at the bedside Reina as well as via phone call with his daughter Aries. I indicated to them both that the soft tissue mass is worrisome for cancer. Given Ramirez advancing dementia he is no longer able to appropriately manage his medical affairs or make his follow-up appointments. His daughter Aries Is going to go to the appointment on the second with her father and they are going to consider changing his living situation from independent to having more caregivers come or staying with him. At this time however the patient is discharged home. He does have serious medical conditions and I did discuss that moving forward a conversation with palliative or hospice care may be indicated abased on follow-up testing and evaluation Departure - Departure Disposition: 01 Home, Self Care Clinical Impression: Retroperitoneal mass, Rectal bleeding Condition: Poor Follow-Up: Jessenia Mckeon PA-C [Primary Care Provider] - 03/25/23 2:40 am Comments: Jamie came to the emergency department today because of rectal bleeding. Unfortunately a CAT scan today shows that there is a soft tissue mass within the left renal collecting system. This may indicate that a new cancer or neoplasm has developed. We have scheduled an appointment with his primary care provider Rukhsana Mckeon on March 25 at 2:40 PM at the [facility]. He will absolutely need referral to a urologist for further evaluation. With the reported rectal bleeding he may also need to be evaluated by a colorectal surgeon. At this time we would not make any changes to his medications or other treatments. However it is very important that you guys consider as a family and as friends how independent Jamie can continue to be. He will need his durable medical power of criminal defense attorney to help him make his care decisions moving forward. Thank you Reina for your care. I have also spoken with his daughter Aries and informed her of the diagnosis today. She may attempt to go to the appointment on the second with her father as well. Return to the ER if you have any other worrisome emergent concerns.
[2023-03-20 12:21] LABS: BASOPHILS % (AUTO) 0.8 %; EOSINOPHILS # (AUTO) 0.1 10^3/uL (0.0-0.7); EOSINOPHILS % (AUTO) 2.5 %; HCT - HEMATOCRIT 41.2 % (42.0-52.0); HGB - HEMOGLOBIN 13.3 g/dL (14.0-18.0); LYMPHOCYTES # (AUTO) 0.9 10^3/uL (1.5-3.5); LYMPHOCYTES % (AUTO) 17.8 %; MEAN CORPUSCULAR HEMOGLOBIN 29.2 pg (27.0-31.0); MEAN CORPUSCULAR HGB CONC 32.3 g/dL (32.0-36.0); MEAN CORPUSCULAR VOLUME 90.4 fL (80.0-94.0); MEAN PLATELET VOLUME 10.6 fL (7.4-11.4); MONOCYTES # (AUTO) 0.3 10^3/uL (0.0-1.0); MONOCYTES % (AUTO) 6.4 %; NEUTROPHILS # (AUTO) 3.8 10^3/uL (1.5-6.6); NEUTROPHILS % (AUTO) 72.3 %; PLT - PLATELET COUNT 208 10^3/uL (130-450); RED BLOOD COUNT 4.56 10^6/uL (4.70-6.10); RED CELL DISTRIBUTION WIDTH 13.3 % (12.0-15.0); WHITE BLOOD COUNT 5.3 x10^3/uL (4.8-10.8)
[2023-03-20 12:30] LABS: ALBUMIN 3.7 g/dL (3.2-5.5); ALBUMIN/GLOBULIN RATIO 1.4 (1.0-2.2); ALKALINE PHOSPHATASE 68 IU/L (42-121); ALT ALANINE AMINOTRANSFERASE < 10 IU/L (10-60); AST ASPARTATE AMINOTRANSFERASE 16 IU/L (10-42); BILIRUBIN,TOTAL 0.6 mg/dL (0.2-1.0); BUN - BLOOD UREA NITROGEN 19 mg/dL (6-20); CALCIUM 8.7 mg/dL (8.5-10.3); CARBON DIOXIDE - CO2 28 mmol/L (21-32); CHLORIDE 107 mmol/L (101-111); CREATININE 1.1 mg/dL (0.6-1.2); GFR - MDRD 63 (>89); GLUCOSE 114 mg/dL (70-100); LIPASE 62 U/L (22-51); POTASSIUM 3.8 mmol/L (3.5-5.0); SODIUM 139 mmol/L (135-145); TOTAL PROTEIN 6.4 g/dL (6.7-8.2)
[2023-03-20 12:31] LABS: INR 1.2 (0.8-1.2); PT - PROTHROMBIN TIME 12.9 secs (9.9-12.6)
[2023-03-20] MEDS ORDERED: iohexoL-300 100 ML VIAL ONE (12:41)
[2023-03-20 12:46] LABS: THYROID STIMULATING HORMONE 0.9 uIU/mL (0.34-5.60)
[2023-03-20 12:50] LABS: FREE T4 (FREE THYROXINE) 1.02 ng/dL (0.58-1.64)
[2023-03-20] MEDS: iohexoL-300 100 ML VIAL IVP ONE (13:52)
--- NOTE | 2023-03-20 13:53 | CT Report ---
PROCEDURE: ABDOMEN/PELVIS W INDICATIONS: rectal bleeding with colostomy CONTRAST: 100ml OMnipaque 300 TECHNIQUE: After the administration of intravenous contrast, 5 mm thick sections acquired from the diaphragms to the symphysis. 5 mm thick coronal and sagittal reformats were acquired. For radiation dose reducti on, the following was used: automated exposure control, adjustment of mA and/or kV according to tiago ent size. COMPARISON: CT of the abdomen dated 09/30/2020, 01/06/2021, 12/04/2022 FINDINGS: Image quality: Excellent. Lung bases and heart: 4 mm nodule at the lateral right lung base is unchanged from the study dated . Bases are otherwise clear. Heart is normal size. No pericardial effusion. Liver: Unremarkable. Gallbladder and biliary tree: Innumerable radiodense punctate stones or sludge is layered in the depe ndent gallbladder fundus. No gallbladder wall thickening or pericholecystic fluid. Spleen: Unremarkable. Pancreas: Unremarkable. Adrenals: Unremarkable. Kidneys and ureters: The right kidney demonstrates normal size and enhancement. The left kidney demon strates a delayed nephrogram. There is a large upper pole low-density cysts, as before. The superior and mid portions of the collecting system appeared dilated with some hyperemia of the urothelium. The re is an enhancing soft tissue mass within the central aspect of the renal pelvis which measures appr oximately 2.6 x 2.5 x 3.4 cm (series 3/image 28 and series 6/image 29). The downstream left ureter is decompressed. Bowel and peritoneum: Patient is status post distal colectomy. There is a left paramedian colostomy. The appendix is thin-walled and gas-filled. A low density fluid collection is present within the heidi neum which measures 3.2 x 2.4 cm in the axial plane. This region measured 4.0 x 3.6 cm on the compari son CT dated 01/06/2021. This region was likely similar on the noncontrast study dated 12/04/2022; thomas josselyn without contrast. Comparison is limited. No new suspicious presacral soft tissue mass lesions or other interval change. Lymph nodes: No central or retroperitoneal adenopathy. Vessels: Unremarkable. PELVIS Reproductive organs: A penile prosthetic pump is present within the right hemipelvis. Brachitherapy b newton are present within the prostate. Bladder: Unremarkable. Lymph nodes: Unremarkable. Bones: No aggressive osseous abnormality. Other: None. IMPRESSION: 1. Enhancing soft tissue mass within the left renal collecting system with resultant dilatation of th e superior and mid aspect of the left renal collecting system. Neoplasm cannot be excluded. Nonemerge nt multiphase renal mass protocol CT is recommended to further characterize this finding. 2. No interval change status post distal left hemicolectomy. Fluid collection in the operative bed is unchanged from prior studies. No findings to explain rectal bleeding. 3. Cholelithiasis. No findings to suggest choledocholithiasis or acute cholecystitis. Reviewed by: Evette No MD on 03/20/2023 1:51 PM PDT Approved by: Evette No MD on 03/20/2023 1:51 PM PDT Station ID: [id number]
[2023-03-20 15:21] LABS: BILIRUBIN,URINE NEGATIVE (NEGATIVE); GLUCOSE, URINE (UA) NEGATIVE (NEGATIVE); KETONES,URINE (UA) NEGATIVE (NEGATIVE); LEUKOCYTE ESTERASE, URINE SMALL (NEGATIVE); NITRITE,URINE NEGATIVE (NEGATIVE); OCCULT BLOOD,URINE LARGE (NEGATIVE); PROTEIN,URINE TRACE mg/dL (NEGATIVE); UROBILINOGEN,URINE 0.2 (NORMAL) E.U./dL (NORMAL)
[2023-03-20 15:22] LABS: CLARITY,URINE HAZY (CLEAR)
[2023-03-20 15:30] VITALS: BP 160/92
[2023-03-20 15:30] LABS: BACTERIA,URINE Rare /HPF (None Seen); SQUAMOUS EPITHELIAL CELL,UR FEW Squamous (<= Few); WBC,URINE >25 /HPF (0-3)
== END 2023-03-20 15:30 | disposition home or self-care (01) ==
LOC: ED 11:32
DX: R19.09 Other intra-abdominal and pelvic swelling, mass and lump (principal); K62.5 Hemorrhage of anus and rectum
CPT/HCPCS: 36415; 74177; 80053; 81001; 83690; 84439; 84443; 85025; 85610; 87086; 99284; Q9967; 81003

== ENCOUNTER 2023-03-25 08:00 | Outpatient (CLI) | payer MEDICARE, BC | END 2023-03-25 23:59 | disposition home or self-care (01) | LOC: LAB.WCP 08:00 | PROVIDERS: ATTEND Physician Assistant Medical | DX: R31.9 Hematuria, unspecified (principal) | CPT/HCPCS: 87086 ==

== ENCOUNTER 2023-03-27 10:44 | Outpatient (CLI) | payer MEDICARE, BC ==
[2023-03-27] MEDS ORDERED: iohexoL-300 100 ML VIAL ONE (11:05)
[2023-03-27] MEDS ORDERED: iohexoL-300 100 ML VIAL IVP ONE (11:33)
--- NOTE | 2023-03-27 15:44 | CT Report ---
PROCEDURE: ABDOMEN W/WO INDICATIONS: RENAL MASS CONTRAST: 140ml Omnipaque 300 TECHNIQUE: After the administration of intravenous contrast, 5 mm thick sections acquired from the diaphragm to the symphysis. 5 mm coronal and sagittal reformats were acquired. For radiation dose reduction, the following was used: automated exposure control, adjustment of mA and/or kV according to patient siz e. COMPARISON: CT 03/20/2023. FINDINGS: Image quality: Excellent. Genitourinary: There is a 3.0 x 2.6 cm mass within the left-sided renal collecting system with enhan cement. This results in urothelial enhancement of the renal pelvis, and moderate, chronic-appearing h ydronephrosis. Renal vein is widely patent. Delayed nephrogram. No complex renal cystic lesions which require follow-up. OTHER: Lung bases and heart: Unremarkable. Liver: No solid mass. Gallbladder and biliary tree: Cholelithiasis without wall thickening. No biliary dilation. Spleen: No splenomegaly. Pancreas: No pancreatic ductal dilation. Adrenals: No adrenal nodule. Bowel and peritoneum: No bowel distension. No pathologic free fluid. Lymph nodes: No central or retroperitoneal adenopathy. Vessels: No infrarenal aortic aneurysm. Bones: No aggressive osseous abnormality. Osteoporosis by Hounsfield units criteria. Other: No significant ventral hernia. IMPRESSION: Enhancing mass in the left renal pelvis measuring 3.0 x 2.6 cm. Findings represent transitional cell carcinoma until proven otherwise. No retroperitoneal adenopathy by size criteria. Reviewed by: Eduardo Woodward on 03/27/2023 3:43 PM PDT Approved by: Eduardo Woodward on 03/27/2023 3:43 PM PDT Station ID: [id number]
== END 2023-03-27 10:45 | disposition home or self-care (01) ==
LOC: DI 10:44
PROVIDERS: ATTEND Physician Assistant Medical
DX: C65.2 Malignant neoplasm of left renal pelvis (principal)
CPT/HCPCS: 74170; Q9967

== ENCOUNTER 2023-11-11 23:47 | Outpatient (CLI) | payer MEDICARE, BC | END 2023-11-11 23:59 | disposition EMS.NT | LOC: EMS 23:47 | DX: R53.1 Weakness (principal) ==